=== PATIENT | female | born 1970 | race Two or more races ===

== ENCOUNTER 2019-04-02 08:50 | Outpatient (CLI) | payer BC | END 2019-04-02 23:59 | disposition home or self-care (01) | LOC: US 08:50 | PROVIDERS: ATTEND Family Medicine | DX: Z00.01 Encounter for general adult medical examination with abnormal findings (principal); R16.0 Hepatomegaly, not elsewhere classified; R53.83 Other fatigue | CPT/HCPCS: 76700-TC ==

== ENCOUNTER 2019-04-17 08:45 | Outpatient (CLI) | payer BC | END 2019-04-17 23:59 | disposition home or self-care (01) | LOC: MRI 08:45 | PROVIDERS: ATTEND Family Medicine | DX: M48.02 Spinal stenosis, cervical region (principal); M47.812 Spondylosis without myelopathy or radiculopathy, cervical region; M46.02 Spinal enthesopathy, cervical region; M25.78 Osteophyte, vertebrae | CPT/HCPCS: 72141-TC ==

== ENCOUNTER 2019-05-08 08:44 | Outpatient (CLI) | payer BC | END 2019-05-08 23:59 | disposition home or self-care (01) | LOC: RAD 08:44 | PROVIDERS: ATTEND Family Medicine | DX: R53.83 Other fatigue (principal) | CPT/HCPCS: 71046 ==

== ENCOUNTER 2019-06-19 08:45 | Outpatient (CLI) | payer BC | END 2019-06-19 23:59 | disposition home or self-care (01) | LOC: LAB 08:45 | PROVIDERS: ATTEND Family Medicine | DX: R94.5 Abnormal results of liver function studies (principal) | CPT/HCPCS: 36415; 86706; 86709-TC; 86803; 87340 ==

== ENCOUNTER 2019-06-21 10:04 | Outpatient (CLI) | payer BC | END 2019-06-21 23:59 | disposition home or self-care (01) | LOC: MRI 10:04 | PROVIDERS: ATTEND Family Medicine | DX: S22.060A Wedge compression fracture of T7-T8 vertebra, initial encounter for closed fracture (principal); M47.814 Spondylosis without myelopathy or radiculopathy, thoracic region; M25.78 Osteophyte, vertebrae; X58.XXXA Exposure to other specified factors, initial encounter; Y93.89 Activity, other specified; Y92.89 Other specified places as the place of occurrence of the external cause; Y99.8 Other external cause status | CPT/HCPCS: 72146-TC ==

== ENCOUNTER 2019-07-12 08:42 | Outpatient (CLI) | payer BC ==
[2019-07-15 16:10] LABS: *IFE A/G RATIO 1.5 (0.7-1.7); *IFE ALBUMIN 4.2 g/dL (2.9-4.4); *IFE ALPHA-2-GLOBULIN 0.8 g/dL (0.4-1.0); *IFE BETA GLOBULIN 0.9 g/dL (0.7-1.3); *IFE M-SPIKE Not Observed g/dL (Not Observed); *IFEALPHA-1-GLOBULIN 0.2 g/dL (0.0-0.4); IMMUNOGLOBULIN A, SERUM 129 mg/dL (87-352); IMMUNOGLOBULIN G, SERUM 1030 mg/dL (700-1600); IMMUNOGLOBULIN M, SERUM 175 mg/dL (26-217)
== END 2019-07-12 23:59 | disposition home or self-care (01) ==
LOC: LAB 08:42
PROVIDERS: ATTEND Family Medicine
DX: S22.000A Wedge compression fracture of unspecified thoracic vertebra, initial encounter for closed fracture (principal); M25.50 Pain in unspecified joint; Z11.59 Encounter for screening for other viral diseases; X58.XXXA Exposure to other specified factors, initial encounter; Y93.89 Activity, other specified; Y92.89 Other specified places as the place of occurrence of the external cause; Y99.8 Other external cause status
CPT/HCPCS: 36415; 82784; 84155; 84165; 86317; 86334

== ENCOUNTER 2019-10-23 13:17 | Emergency (ER) | payer BC, OTHER ==
[~2019-10-23] VITALS: Ht 172.7 cm; Wt 65.8 kg
[2019-10-23] MEDS ORDERED: FERR325T23 PO (13:31)
[2019-10-23 13:49] VITALS: BP 127/70
--- NOTE | 2019-10-23 13:49 | NUR ---
SWAB SENT TO LAB.
--- NOTE | 2019-10-23 13:49 | NUR ---
Patient discharged to home in stable condition. Written and verbal after care instructions given. Patient verbalizes understanding of instruction.
== END 2019-10-23 13:50 | disposition home or self-care (01) ==
LOC: ER 13:29
DX: Z03.818 Encounter for observation for suspected exposure to other biological agents ruled out (principal)
CPT/HCPCS: 99283; U0003

== ENCOUNTER 2019-11-22 11:32 | Emergency (ER) | payer OTHER ==
[~2019-11-22] VITALS: Ht 172.7 cm; Wt 63.5 kg
[~2019-11-22 11:32] MED LIST: FERR325T23 PO
[2019-11-22 11:43] VITALS: BP 112/83
--- NOTE | 2019-11-22 12:53 | NUR ---
Patient discharged to home in stable condition. Written and verbal after care instructions given. Patient verbalizes understanding of instruction.
== END 2019-11-22 12:53 | disposition home or self-care (01) ==
LOC: ER 11:33
DX: Z11.59 Encounter for screening for other viral diseases (principal)
CPT/HCPCS: 99283; C9803; U0003

== ENCOUNTER 2019-12-27 11:17 | Outpatient (CLI) | payer BC ==
[2019-12-30 23:06] LABS: CCP IgG/IgA AB 5 units (0-19)
== END 2019-12-27 23:59 | disposition home or self-care (01) ==
LOC: LAB 11:17
DX: R53.83 Other fatigue (principal)
CPT/HCPCS: 36415; 85652-TC; 86140-TC; 86200

== ENCOUNTER 2020-03-19 09:14 | Outpatient (CLI) | payer BC ==
[2020-03-19 10:07] LABS: BASOPHILS % (AUTO) 0.4 % (0.0-2.0); EOSINOPHILS % (AUTO) 1.9 % (0.0-6.0); HEMATOCRIT 43 % (33-45); HEMOGLOBIN 14.4 g/dL (11.5-14.8); LYMPHOCYTES % (AUTO) 17.7 % (20.0-44.0); MEAN CORPUSCULAR HGB CONC 33 g/dl (31.0-36.0); MEAN CORPUSCULAR VOLUME 100 fL (82-100); MONOCYTES # (AUTO) 0.3 /CMM (0.1-1.30); MONOCYTES % (AUTO) 5.1 % (2.0-12.0); NEUTROPHILS % (AUTO) 74.9 % (43.0-81.0); PLATELET COUNT (AUTO) 188 /CMM (150-450); RED BLOOD CELL COUNT(AUTO) 4.32 MIL/uL (4.0-5.2); WHITE BLOOD COUNT (AUTO) 5.4 K/uL (4.3-11.0)
[2020-03-19 10:28] LABS: ALBUMIN 4.1 g/dL (3.4-5.0); BILIRUBIN,TOTAL 0.4 mg/dL (0.2-1.0); CALCIUM, SERUM 8.6 mg/dL (8.5-10.1); CREATININE 0.8 mg/dL (0.6-1.3); POTASSIUM 3.8 mmol/L (3.5-5.1); TOTAL PROTEIN, SERUM 7.5 g/dL (6.4-8.2)
[2020-03-19 10:42] LABS: THYROID STIMULATING HORMONE 1.765 uIU/mL (0.358-3.74)
[2020-03-20 11:30] LABS: FOLIC ACID 17.8 ng/mL (>3.0)
== END 2020-03-19 23:59 | disposition home or self-care (01) ==
LOC: LAB 09:14
PROVIDERS: ATTEND Family Medicine
DX: E55.9 Vitamin D deficiency, unspecified (principal); M25.50 Pain in unspecified joint; R12 Heartburn; Z79.899 Other long term (current) drug therapy
CPT/HCPCS: 36415; 80053-TC; 82306; 82728-TC; 83540-TC; 84439-TC; 84443-TC; 84550-TC; 85025-TC; 86677

== ENCOUNTER 2020-03-30 09:46 | Emergency (ER) | payer BC, OTHER ==
[~2020-03-30] VITALS: Ht 172.7 cm; Wt 62.1 kg
[2020-03-30 09:51] VITALS: BP 138/81
--- NOTE | 2020-03-30 10:25 | NUR ---
Patient discharged to home in stable condition. Written and verbal after care instructions given. Patient verbalizes understanding of instruction.
== END 2020-03-30 10:26 | disposition home or self-care (01) ==
LOC: ER 09:49
DX: Z20.828 Contact with and (suspected) exposure to other viral communicable diseases (principal)
CPT/HCPCS: 99283; C9803; U0003

== ENCOUNTER 2020-09-15 08:26 | Outpatient (CLI) | payer BC ==
[2020-09-15 09:02] LABS: BASOPHILS % (AUTO) 0.6 % (0.0-2.0); EOSINOPHILS % (AUTO) 2.2 % (0.0-6.0); HEMATOCRIT 43 % (33-45); HEMOGLOBIN 14.3 g/dL (11.5-14.8); LYMPHOCYTES # (AUTO) 1.3 /CMM (0.8-4.8); LYMPHOCYTES % (AUTO) 25.2 % (20.0-44.0); MEAN CORPUSCULAR HGB CONC 34 g/dl (31.0-36.0); MEAN CORPUSCULAR VOLUME 99 fL (82-100); MONOCYTES # (AUTO) 0.3 /CMM (0.1-1.30); MONOCYTES % (AUTO) 6.4 % (2.0-12.0); NEUTROPHILS # (AUTO) 3.5 /CMM (1.8-8.9); NEUTROPHILS % (AUTO) 65.6 % (43.0-81.0); PLATELET COUNT (AUTO) 223 /CMM (150-450); RED BLOOD CELL COUNT(AUTO) 4.28 MIL/uL (4.0-5.2); WHITE BLOOD COUNT (AUTO) 5.4 K/uL (4.3-11.0)
[2020-09-15 09:19] LABS: BILIRUBIN,URINE NEGATIVE (NEGATIVE); COLOR,URINE YELLOW (YELLOW); LEUKOCYTE ESTERASE ,URINE NEGATIVE (NEGATIVE); NITRITE, URINE NEGATIVE (NEGATIVE); PH,URINE 7.5 (5.0-8.0); PROTEIN,URINE NEGATIVE (NEGATIVE); UGLUCOSE NEGATIVE (NEGATIVE); UROBILINOGEN,URINE 0.2 EU/dL (0.2)
[2020-09-15 09:41] LABS: THYROID STIMULATING HORMONE 2.178 uIU/mL (0.358-3.74)
[2020-09-15 09:51] LABS: ALBUMIN 4.4 g/dL (3.4-5.0); BILIRUBIN,TOTAL 0.4 mg/dL (0.2-1.0); CALCIUM, SERUM 8.8 mg/dL (8.5-10.1); CREATININE 0.9 mg/dL (0.6-1.3); POTASSIUM 3.8 mmol/L (3.5-5.1); TOTAL PROTEIN, SERUM 7.7 g/dL (6.4-8.2)
[2020-09-15 10:08] LABS: BACTERIA,URINE None seen /HPF (None Seen); SQUAMOUS EPITHELIAL CELL,UR 0-2 /HPF (None Seen); WBC,URINE NONE SEEN /HPF (0-3)
== END 2020-09-15 23:59 | disposition home or self-care (01) ==
LOC: LAB 08:26
PROVIDERS: ATTEND Family Medicine
DX: E55.9 Vitamin D deficiency, unspecified (principal); D64.9 Anemia, unspecified; R76.0 Raised antibody titer; Z86.19 Personal history of other infectious and parasitic diseases
CPT/HCPCS: 36415; 80053-TC; 80061-TC; 81001; 82306; 82607-TC; 82728-TC; 83540-TC; 84439-TC; 84443-TC; 85025-TC

== ENCOUNTER 2021-08-02 08:59 | Outpatient (CLI) | payer BC | END 2021-08-02 23:59 | disposition home or self-care (01) | LOC: CT 08:59 | PROVIDERS: ATTEND Internal Medicine Interventional Cardiology | DX: R51.9 Headache, unspecified (principal); J34.89 Other specified disorders of nose and nasal sinuses | CPT/HCPCS: 70450-TC ==

== ENCOUNTER → 2021-08-05 | Outpatient (CLI) | payer BC | END | disposition home or self-care (01) | LOC: MRI 08:55 | PROVIDERS: ATTEND Internal Medicine Interventional Cardiology | DX: M47.813 Spondylosis without myelopathy or radiculopathy, cervicothoracic region (principal); M48.02 Spinal stenosis, cervical region; M25.78 Osteophyte, vertebrae; R90.82 White matter disease, unspecified; J32.2 Chronic ethmoidal sinusitis | CPT/HCPCS: 70551-TC; 72141-TC ==

== ENCOUNTER 2021-10-05 10:32 | Outpatient (CLI) | payer BC ==
[2021-10-05 12:26] LABS: BILIRUBIN,URINE NEGATIVE (NEGATIVE); COLOR,URINE YELLOW (YELLOW); LEUKOCYTE ESTERASE ,URINE NEGATIVE (NEGATIVE); NITRITE, URINE NEGATIVE (NEGATIVE); PH,URINE 6.5 (5.0-8.0); PROTEIN,URINE NEGATIVE (NEGATIVE); UGLUCOSE NEGATIVE (NEGATIVE); UROBILINOGEN,URINE 0.2 EU/dL (0.2)
== END 2021-10-05 23:59 | disposition home or self-care (01) ==
LOC: LAB 10:32
PROVIDERS: ATTEND Family Medicine
DX: R31.9 Hematuria, unspecified (principal)
CPT/HCPCS: 87086-TC

== ENCOUNTER 2021-11-22 08:51 | Outpatient (CLI) | payer BC ==
[2021-11-22 10:03] LABS: BASOPHILS % (AUTO) 0.6 % (0.0-2.0); EOSINOPHILS % (AUTO) 3.4 % (0.0-6.0); HEMATOCRIT 36 % (33-45); HEMOGLOBIN 11.9 g/dL (11.5-14.8); LYMPHOCYTES # (AUTO) 1.2 K/uL (0.8-4.8); LYMPHOCYTES % (AUTO) 27.3 % (20.0-44.0); MEAN CORPUSCULAR HGB CONC 33 g/dl (31.0-36.0); MEAN CORPUSCULAR VOLUME 91 fL (82-100); MONOCYTES # (AUTO) 0.3 K/uL (0.1-1.30); MONOCYTES % (AUTO) 6.5 % (2.0-12.0); NEUTROPHILS # (AUTO) 2.7 K/uL (1.8-8.9); NEUTROPHILS % (AUTO) 62.2 % (43.0-81.0); PLATELET COUNT (AUTO) 182 K/uL (150-450); RED BLOOD CELL COUNT(AUTO) 3.99 MIL/uL (4.0-5.2); WHITE BLOOD COUNT (AUTO) 4.3 K/uL (4.3-11.0)
[2021-11-22 10:13] LABS: IRON, SERUM 62 ug/dl (50-175); TOTAL IRON BINDING CAPACITY 246 ug/dl (250-450)
[2021-11-22 10:16] LABS: CALCIUM, SERUM 8.8 mg/dL (8.5-10.1); CARBON DIOXIDE 26 mmol/L (21-32); CHLORIDE 104 mmol/L (98-107); CREATININE 0.9 mg/dL (0.6-1.3); GLUCOSE 92 mg/dL (74-106); POTASSIUM 3.6 mmol/L (3.5-5.1); SODIUM SERUM 139 mmol/L (136-145); UREA NITROGEN, BLOOD 14 mg/dL (7-18)
[2021-11-22 10:24] LABS: CHOLESTEROL 161 mg/dL (<200); FREE T4 (FREE THYROXINE) 0.89 ng/dL (0.76-1.46); HDL CHOLESTEROL 74 mg/dL (40-60); LDL 76 mg/dL (0-99); THYROID STIMULATING HORMONE 2.329 uIU/mL (0.358-3.74); TRIGLYCERIDES 48 mg/dL (30-150)
[2021-11-22 10:31] LABS: C-REACTIVE PROTEIN < 0.2 mg/dL (0.0-0.9)
[2021-11-22 10:57] LABS: ALANINE AMINOTRANSFERASE 21 U/L (12-78); ALBUMIN 4.1 g/dL (3.4-5.0); ALKALINE PHOSPHATASE 41 U/L (46-116); ASPARTATE AMINOTRANSFERASE 20 U/L (15-37); BILIRUBIN,TOTAL 0.4 mg/dL (0.2-1.0); TOTAL PROTEIN, SERUM 7.1 g/dL (6.4-8.2)
[2021-11-23 07:06] LABS: T3, FREE 2.6 pg/mL (2.0-4.4)
== END 2021-11-22 23:59 | disposition home or self-care (01) ==
LOC: LAB 08:51
PROVIDERS: ATTEND Family Medicine
DX: R53.83 Other fatigue (principal); R76.0 Raised antibody titer
CPT/HCPCS: 36415; 80053-TC; 80061-TC; 82306; 82533; 82607-TC; 83540-TC; 84439-TC; 84443-TC; 84481; 85025-TC; 85652-TC; 86140-TC; 86431-TC

== ENCOUNTER 2022-01-04 09:01 | Outpatient (CLI) | payer BC | END 2022-01-04 23:59 | disposition home or self-care (01) | LOC: LAB 09:01 | PROVIDERS: ATTEND Family Medicine | DX: R76.0 Raised antibody titer (principal) | CPT/HCPCS: 36415 ==

== ENCOUNTER 2022-04-07 09:02 | Outpatient (CLI) | payer BC ==
[2022-04-07 10:09] LABS: FREE T4 (FREE THYROXINE) 0.74 ng/dL (0.76-1.46); THYROID STIMULATING HORMONE 1.168 uIU/mL (0.358-3.74)
[2022-04-08 08:07] LABS: THYROID PEROXIDASE (TPO) AB 16 IU/mL (0-34)
== END 2022-04-07 23:59 | disposition home or self-care (01) ==
LOC: US 09:02
PROVIDERS: ATTEND Family Medicine
DX: E04.2 Nontoxic multinodular goiter (principal); E03.9 Hypothyroidism, unspecified; R22.1 Localized swelling, mass and lump, neck
CPT/HCPCS: 36415; 76536-TC; 84439-TC; 84443-TC; 84481; 86376; 86800